=== PATIENT | female | born 1935 | race Caucasian/White ===

== ENCOUNTER 2018-06-06 13:45 | Outpatient (RCR) | payer MEDICARE, OTHER, SELFPAY ==
--- NOTE | 2018-05-09 10:58 | PT.OIE ---
Current Diagnoses Benign paroxysmal vertigo, left ear (05/09/18) Repeated falls (05/09/18) Provider Visit Care Team Role Provider Type Rimma Delgadillo Family Provider Non-Staff Primary Care Provider Specialty: Medical Address: [address] , [place], [address] Email: Sedrick Rubi MD Attending Provider Physician Specialty: Ear, Nose, Throat Address: [address] [place] [address], [id number] Email: Physical Therapy Initial Evaluation PT-OP-A Visit Information Start: 05/09/18 10:31 Freq: Status: Active Protocol: Document 05/09/18 09:40 DCW (Rec: 05/09/18 10:57 DCW [id number]) Out-Patient Physical Therapy Visit Information Visit Information Visit Type Initial Evaluation Visit Start Time 09:40 Visit Stop Time 10:30 Total Visit Minutes 50 Visit Number 1 Number of COMPUTER HARDWARE ENGINEER Visits 0 Evaluation Information Evaluation Date 05/09/18 PT-OP-B Current Condition Start: 05/09/18 10:31 Freq: Status: Active Protocol: Document 05/09/18 09:40 DCW (Rec: 05/09/18 10:57 DCW [id number]) Current Condition History of Current Condition Onset Date Two years Current Complaints Positional dizziness History of Current Condition Pt is an 83 year old female complaining of a two year history of motion-induced vertigo and imbalance. Pt reports episodes last seconds to minutes. Symptoms are provoked by getting out of bed on the left side and leaning back in a dentist or hair- dresser's chair. Pt notes that her symptoms began two years ago following a fall, where she hit her head on some rocks . Two months after the fall, and still suffering from dizziness, she went to the urgent care clinic, and had a CT scan performed, which was negative. Following this, she and her looked up her symptoms online, and decided she had BPPV, which was later confirmed by Dr Rubi. After Dr Rubi performed an Anderson maneuver, she was sent to a different PT clinic for vestibular rehabilitation, and reports it was a disaster, and it turned her off of any vestibular rehab over the following two years, until she had a few bad episodes recently at her dentist's office and hairdresser's, so she has decided to try treatment again. Pt denies recent hearing changes, tinnitus, diplopia, dysarthria , discoordination, or decreased mentation/ consciousness. Pt reports symptoms are waxing/waning in nature. Pt denies hx of hyperlipidemia, diabetes, seizure, migraines, CVA, anxiety/panic disorders, or excessive smoking or drinking. Pt reports she does have well -controlled HTN, and was recently diagnosed with an enlarged heart, but has no symptoms. Prior Treatments and Tests Prior Anderson maneuver, Head CT scan two years ago was negative Current Functional Impairments (Reported) Functional Limitations- ADL's Difficulty getting out of bed on left side Personal Factors Other Personal Factors That May Effect History of multiple falls Therapy/Recovery PT-OP-C Subjective Start: 05/09/18 10:31 Freq: Status: Active Protocol: Document 05/09/18 09:40 DCW (Rec: 05/09/18 10:57 DCW [id number]) Patient Questionnaires ABC- Activity Specific Balance Confidence Scale ABC Score 71.25% ABC Functional Impairment 20 to <40% Impaired (Score 61- 80) Dizziness Handicap Inventory DHI Score 26% DHI Functional Impairment 20 to 39% Impaired (Score 20- 39) OP-PT Pain Assessment Pain Assessment Grid Paper Pain Assessment Grid Completed No PT-OP-O Vestibular Start: 05/09/18 10:31 Freq: Status: Active Protocol: Document 05/09/18 09:40 DCW (Rec: 05/09/18 10:57 DCW [id number]) Vestibular Assessment Screening Tests Vestibular Artery Screen Negative Sharp-Jose Test Negative Auditory Tests Palacios Test Negative Rinne Test Negative Air Conduction Results Equal Visual Testing Smooth Pursuits Horizontal Negative Smooth Pursuits Vertical Negative Saccades Horizontal Negative Gaze Evoked Nystagmus With Fixation Negative Gaze Evoked Nystagmus Without Fixation Negative Heave Test Positive Bilateral Thrust Head Positive Bilateral Head Shake Negative Positional Testing Ronnie-Hallpike Positive Left Negative Right Upbeating < 60 Seconds Rolling Test Positive Left Negative Right Upbeating < 60 Seconds Comments Vestibular Comments Left [place]-Hallpike had 15 second latency period, followed by complaints of dizziness and up-beating, torsional nystagmus lasting 20 seconds. PT-OP-Q Treatments Start: 05/09/18 10:32 Freq: Status: Active Protocol: Document 05/09/18 09:40 DCW (Rec: 05/09/18 10:57 DCW [id number]) Canalithic Repositioning BPPV Treatment Anderson Affected Canal(s) Left posterior Comments Symptoms in positions 1 and 3, typically indicative of a successful treatment PT-OP-T Assessment and Plan Start: 05/09/18 10:31 Freq: Status: Active Protocol: Document 05/09/18 09:40 DCW (Rec: 05/09/18 10:57 DCW [id number]) Physical Therapy Assessment Rehab Potential Rehabilitation Potential Excellent Evaluation Complexity Number of Personal Factors/Comorbidities 1-2 Number of Body Systems Impaired 1-2 Clinical Presentation at Evaluation Unstable Impairments Impairments Balance Vestibular Goals Three Impairment Ronnie-Hallpike Short Term Goal (STG) Pt to have negative positional testing bilaterally STG Duration Two Impairment DHI Short Term Goal (STG) Pt to score less than 10% on DHI STG Duration One Impairment Exiting bed Short Term Goal (STG) Pt to be able to exit bed on left side with no symptoms STG Duration Assessment Summary Assessment During left Ronnie-Hallpike test, there was a 15 seconds latency, followed by pt complaint of vertigo and demonstrated up-beating, torsional nystagmus lasting approximately 20 seconds, consistent with diagnosis of left/right-sided posterior canal BPPV, canalithiasis-type . Pt was treated with a left- sided Anderson maneuver. Pt complained of symptoms in the first and third position, which is normally indicative of a successful treatment. Pt was educated on BPPV, expectations for treatment, possible recurrence, and post- Anderson restrictions. Pt to return in ~1 week for a follow-up appointment, and intermittently afterward as indicated for treatment of BPPV. Physical Therapy Plan Frequency and Duration Frequency of Treatment Intermittently Duration of Treatment 2 months Plan of Care Start Date 05/09/18 Plan of Care End Date 07/09/18 Therapeutic Interventions Therapeutic Interventions Balance Training Canalithic Repositioning Patient/Caregiver Education Self-Care/Home Management Vestibular Rehabilitation Next Visit Focus/Plan Next Note Type Treatment Note Next Visit Plan Further positional testing and CRM as indicated
--- NOTE | 2018-05-09 10:59 | PT.OPPOC ---
Current Diagnoses Benign paroxysmal vertigo, left ear (05/09/18) Repeated falls (05/09/18) Provider Visit Care Team Role Provider Type Rimma Delgadillo Family Provider Non-Staff Primary Care Provider Specialty: Medical Address: [address] , [place], [address] Email: Sedrick Rubi MD Attending Provider Physician Specialty: Ear, Nose, Throat Address: [address] [place] [address], [id number] Email: Plan Of Care PT-OP-T Assessment and Plan Start: 05/09/18 10:31 Freq: Status: Active Protocol: Document 05/09/18 09:40 DCW (Rec: 05/09/18 10:57 DCW [id number]) Physical Therapy Assessment Rehab Potential Rehabilitation Potential Excellent Evaluation Complexity Number of Personal Factors/Comorbidities 1-2 Number of Body Systems Impaired 1-2 Clinical Presentation at Evaluation Unstable Impairments Impairments Balance Vestibular Goals Three Impairment Ronnie-Hallpike Short Term Goal (STG) Pt to have negative positional testing bilaterally STG Duration Two Impairment DHI Short Term Goal (STG) Pt to score less than 10% on DHI STG Duration One Impairment Exiting bed Short Term Goal (STG) Pt to be able to exit bed on left side with no symptoms STG Duration Assessment Summary Assessment During left [place]-Hallpike test, there was a 15 seconds latency, followed by pt complaint of vertigo and demonstrated up-beating, torsional nystagmus lasting approximately 20 seconds, consistent with diagnosis of left/right-sided posterior canal BPPV, canalithiasis-type . Pt was treated with a left- sided Anderson maneuver. Pt complained of symptoms in the first and third position, which is normally indicative of a successful treatment. Pt was educated on BPPV, expectations for treatment, possible recurrence, and post- Anderson restrictions. Pt to return in ~1 week for a follow-up appointment, and intermittently afterward as indicated for treatment of BPPV. Physical Therapy Plan Frequency and Duration Frequency of Treatment Intermittently Duration of Treatment 2 months Plan of Care Start Date 05/09/18 Plan of Care End Date 07/09/18 Therapeutic Interventions Therapeutic Interventions Balance Training Canalithic Repositioning Patient/Caregiver Education Self-Care/Home Management Vestibular Rehabilitation Next Visit Focus/Plan Next Note Type Treatment Note Next Visit Plan Further positional testing and CRM as indicated Plan of Care Dates Plan of Care Start Date 05/09/18 Plan of Care End Date 07/09/18 Please Sign and Return: I have reviewed this Plan of Care and certify that the skilled therapy services above are required to meet the patient?s needs. Physician Signature Date Printed Name and Credentials Clinical Instructor Signature Printed Name and Credentials
--- NOTE | 2018-06-06 14:18 | PT.OTN ---
Current Diagnoses Benign paroxysmal vertigo, left ear (06/06/18) Physical Therapy Treatment Note PT-OP-A Visit Information Start: 05/09/18 10:31 Freq: Status: Active Protocol: Document 06/06/18 13:45 DCW (Rec: 06/06/18 14:18 DCW [id number]) Out-Patient Physical Therapy Visit Information Visit Information Visit Type Treatment Note Visit Start Time 13:45 Visit Stop Time 14:05 Total Visit Minutes 20 Visit Number 2 Number of FINAL ARMATURE TESTER Visits 0 Evaluation Information Evaluation Date 05/09/18 PT-OP-B Current Condition Start: 05/09/18 10:31 Freq: Status: Active Protocol: Document 05/09/18 09:40 DCW (Rec: 05/09/18 10:57 DCW [id number]) Current Condition History of Current Condition Onset Date Two years Current Complaints Positional dizziness History of Current Condition Pt is an 83 year old female complaining of a two year history of motion-induced vertigo and imbalance. Pt reports episodes last seconds to minutes. Symptoms are provoked by getting out of bed on the left side and leaning back in a dentist or hair- dresser's chair. Pt notes that her symptoms began two years ago following a fall, where she hit her head on some rocks . Two months after the fall, and still suffering from dizziness, she went to the urgent care clinic, and had a CT scan performed, which was negative. Following this, she and her looked up her symptoms online, and decided she had BPPV, which was later confirmed by Dr Rubi. After Dr Rubi performed an Anderson maneuver, she was sent to a different PT clinic for vestibular rehabilitation, and reports it was a disaster, and it turned her off of any vestibular rehab over the following two years, until she had a few bad episodes recently at her dentist's office and [employer], so she has decided to try treatment again. Pt denies recent hearing changes, tinnitus, diplopia, dysarthria , discoordination, or decreased mentation/ consciousness. Pt reports symptoms are waxing/waning in nature. Pt denies hx of hyperlipidemia, diabetes, seizure, migraines, CVA, anxiety/panic disorders, or excessive smoking or drinking. Pt reports she does have well -controlled HTN, and was recently diagnosed with an enlarged heart, but has no symptoms. Prior Treatments and Tests Prior Anderson maneuver, Head CT scan two years ago was negative Current Functional Impairments (Reported) Functional Limitations- ADL's Difficulty getting out of bed on left side Personal Factors Other Personal Factors That May Effect History of multiple falls Therapy/Recovery PT-OP-C Subjective Start: 05/09/18 10:31 Freq: Status: Active Protocol: Document 06/06/18 13:45 DCW (Rec: 06/06/18 14:18 DCW [id number]) OP-PT Subjective Patient Comments Patient Comments Pt reports that she believes she is doing better, but she also hasn't had much occasion to really put her head back very far. PT-OP-O Vestibular Start: 05/09/18 10:31 Freq: Status: Active Protocol: Document 05/09/18 09:40 DCW (Rec: 05/09/18 10:57 DCW [id number]) Vestibular Assessment Screening Tests Vestibular Artery Screen Negative Sharp-Jose Test Negative Auditory Tests Palacios Test Negative Rinne Test Negative Air Conduction Results Equal Visual Testing Smooth Pursuits Horizontal Negative Smooth Pursuits Vertical Negative Saccades Horizontal Negative Gaze Evoked Nystagmus With Fixation Negative Gaze Evoked Nystagmus Without Fixation Negative Heave Test Positive Bilateral Thrust Head Positive Bilateral Head Shake Negative Positional Testing Ronnie-Hallpike Positive Left Negative Right Upbeating < 60 Seconds Rolling Test Positive Left Negative Right Upbeating < 60 Seconds Comments Vestibular Comments Left [place]-Hallpike had 15 second latency period, followed by complaints of dizziness and up-beating, torsional nystagmus lasting 20 seconds. PT-OP-Q Treatments Start: 05/09/18 10:32 Freq: Status: Active Protocol: Document 06/06/18 13:45 DCW (Rec: 06/06/18 14:18 DCW [id number]) Canalithic Repositioning BPPV Treatment Anderson Affected Canal(s) Left posterior Comments Symptoms in positions 1 and 3, typically indicative of a successful treatment PT-OP-T Assessment and Plan Start: 05/09/18 10:31 Freq: Status: Active Protocol: Document 06/06/18 13:45 DCW (Rec: 06/06/18 14:18 DCW [id number]) Physical Therapy Assessment Impairments Impairments Balance Vestibular Goals Three Impairment Ronnie-Hallpike Short Term Goal (STG) Pt to have negative positional testing bilaterally STG Duration Two Impairment DHI Short Term Goal (STG) Pt to score less than 10% on DHI STG Duration One Impairment Exiting bed Short Term Goal (STG) Pt to be able to exit bed on left side with no symptoms STG Duration Assessment Summary Assessment Pt complained of vertigo lasting 5 seconds during left Ronnie-Hallpike following a 30 second latency, however did not have any visible nystagmus . A left-sided Anderson maneuver was performed, and further testing was negative. Discussed plan with patient, and she was agreeable to not schedule any further appointments at this time, and call within the next month if she requires any more CRM. Physical Therapy Plan Frequency and Duration Frequency of Treatment Intermittently Duration of Treatment 2 months Plan of Care Start Date 05/09/18 Plan of Care End Date 07/09/18 Therapeutic Interventions Therapeutic Interventions Balance Training Canalithic Repositioning Patient/Caregiver Education Self-Care/Home Management Vestibular Rehabilitation Next Visit Focus/Plan Next Note Type Treatment Note Next Visit Plan Further positional testing and CRM as indicated
--- NOTE | 2018-07-30 09:53 | PT.OPDS ---
Current Diagnoses Benign paroxysmal vertigo, left ear (06/06/18) Provider Visit Care Team Role Provider Type Rimma Delgadillo Family Provider Non-Staff Primary Care Provider Specialty: Medical Address: [address] , [place], [address] Email: Sedrick Rubi MD Attending Provider Physician Specialty: Ear, Nose, Throat Address: [address] [place] [address], [id number] Email: Visit Number Visit Number 2 Discharge Summary PT-OP-B Current Condition Start: 05/09/18 10:31 Freq: Status: Active Protocol: Document 05/09/18 09:40 DCW (Rec: 05/09/18 10:57 DCW [id number]) Current Condition History of Current Condition Onset Date Two years Current Complaints Positional dizziness History of Current Condition Pt is an 83 year old female complaining of a two year history of motion-induced vertigo and imbalance. Pt reports episodes last seconds to minutes. Symptoms are provoked by getting out of bed on the left side and leaning back in a dentist or hair- dresser's chair. Pt notes that her symptoms began two years ago following a fall, where she hit her head on some rocks . Two months after the fall, and still suffering from dizziness, she went to the urgent care clinic, and had a CT scan performed, which was negative. Following this, she and her looked up her symptoms online, and decided she had BPPV, which was later confirmed by Dr Rubi. After Dr Rubi performed an Anderson maneuver, she was sent to a different PT clinic for vestibular rehabilitation, and reports it was a disaster, and it turned her off of any vestibular rehab over the following two years, until she had a few bad episodes recently at her dentist's office and hairdresser's, so she has decided to try treatment again. Pt denies recent hearing changes, tinnitus, diplopia, dysarthria , discoordination, or decreased mentation/ consciousness. Pt reports symptoms are waxing/waning in nature. Pt denies hx of hyperlipidemia, diabetes, seizure, migraines, CVA, anxiety/panic disorders, or excessive smoking or drinking. Pt reports she does have well -controlled HTN, and was recently diagnosed with an enlarged heart, but has no symptoms. Prior Treatments and Tests Prior Anderson maneuver, Head CT scan two years ago was negative Current Functional Impairments (Reported) Functional Limitations- ADL's Difficulty getting out of bed on left side Personal Factors Other Personal Factors That May Effect History of multiple falls Therapy/Recovery PT-OP-O Vestibular Start: 05/09/18 10:31 Freq: Status: Active Protocol: Document 05/09/18 09:40 DCW (Rec: 05/09/18 10:57 DC [id number]) Vestibular Assessment Screening Tests Vestibular Artery Screen Negative Sharp-Jose Test Negative Auditory Tests [place] Test Negative Rinne Test Negative Air Conduction Results Equal Visual Testing Smooth Pursuits Horizontal Negative Smooth Pursuits Vertical Negative Saccades Horizontal Negative Gaze Evoked Nystagmus With Fixation Negative Gaze Evoked Nystagmus Without Fixation Negative Heave Test Positive Bilateral Thrust Head Positive Bilateral Head Shake Negative Positional Testing [place]-Hallpike Positive Left Negative Right Upbeating < 60 Seconds Rolling Test Positive Left Negative Right Upbeating < 60 Seconds Comments Vestibular Comments Left [place]-Hallpike had 15 second latency period, followed by complaints of dizziness and up-beating, torsional nystagmus lasting 20 seconds. PT-OP-T Assessment and Plan Start: 05/09/18 10:31 Freq: Status: Active Protocol: Document 07/30/18 09:50 DCW (Rec: 07/30/18 09:53 DC [id number]) Physical Therapy Assessment Goals Three Impairment [place]-Hallpike Short Term Goal (STG) Pt to have negative positional testing bilaterally STG Duration Two Impairment DHI Short Term Goal (STG) Pt to score less than 10% on DHI STG Duration One Impairment Exiting bed Short Term Goal (STG) Pt to be able to exit bed on left side with no symptoms STG Duration Assessment Summary Assessment Pt was last seen on 06/06/18, and at that time was instructed to call for a return appointment within one month if her symptoms continued. Pt has not called to schedule any appointments, and will be discharged at this time. Physical Therapy Plan Discharge Physical Therapy Discharge Reasons No Longer Attending PT
== END 2018-07-30 12:00 | disposition home or self-care (01) ==
LOC: PHYS 13:45
PROVIDERS: Family Provider Family Medicine; PCP Family Medicine; Visit Provider Otolaryngology
DX: H81.12 Benign paroxysmal vertigo, left ear (principal)
CPT/HCPCS: 95992; 97161

== ENCOUNTER 2018-10-23 13:53 | Outpatient (RCR) | payer MEDICARE, OTHER, SELFPAY ==
--- NOTE | 2018-10-23 15:47 | PT.OIE ---
Current Diagnoses Benign paroxysmal vertigo, left ear (10/23/18) Provider Visit Care Team Role Provider Type Rimma Delgadillo Primary Care Provider Non-Staff Specialty: Medical Address: [address] , [place], [address] Email: Sedrick Rubi MD Attending Provider Physician Specialty: Ear, Nose, Throat Address: [address] [place] [address], [id number] Email: Physical Therapy Initial Evaluation PT-OP-A Visit Information Start: 10/23/18 14:28 Freq: Status: Active Protocol: Document 10/23/18 14:30 DCW (Rec: 10/23/18 15:47 DCW [id number]) Out-Patient Physical Therapy Visit Information Visit Information Visit Type Initial Evaluation Visit Start Time 14:30 Visit Stop Time 15:05 Total Visit Minutes 35 Visit Number 1 Number of STAVE INSPECTOR Visits 0 Evaluation Information Evaluation Date 10/23/18 PT-OP-B Current Condition Start: 10/23/18 14:28 Freq: Status: Active Protocol: Document 10/23/18 14:30 DCW (Rec: 10/23/18 15:47 DCW [id number]) Current Condition History of Current Condition Onset Date One week Current Complaints Positional dizziness History of Current Condition Pt is an 83 year old female complaining of a one week history of motion-induced vertigo. 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 Pt reports she was at a urology appointment, had to lay back in a chair for some imaging, and she suddenly became very symptomatic with a sensation of feeling like the room was spinning. This occurred again when she then sat up following the procedure, and she almost fell trying to get to her coat, but was able to grab onto the wall. Pt denies recent hearing changes, tinnitus, diplopia, dysarthria , discoordination, or decreased mentation/ consciousness. Pt reports symptoms are waxing and waning in nature. Pt denies hx of hyperlipidemia, diabetes, seizure, migraines, CVA, anxiety/panic disorders, or excessive smoking or drinking. Pt reports she does have well -controlled HTN, and was recently diagnosed with an enlarged heart, but has no symptoms. 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 Anderson maneuver Head CT scan two years ago was negative Treatment Goals Patient/Caregiver Goals Eliminate symptoms with positional changes, and decrease fear/apprehension that symptoms may suddenly return Current Functional Impairments (Reported) Functional Limitations- ADL's Difficulty getting out of bed on left side Personal Factors Other Personal Factors That May Effect History of multiple falls Therapy/Recovery PT-OP-C Subjective Start: 10/23/18 14:28 Freq: Status: Active Protocol: Document 10/23/18 14:30 DCW (Rec: 10/23/18 15:47 DCW [id number]) OP-PT Subjective Patient Comments Patient Comments I think it's pretty much the same as before. Patient Questionnaires ABC- Activity Specific Balance Confidence Scale ABC Score 28.13% ABC Functional Impairment 60 to <80% Impaired (Score 21- 40) Dizziness Handicap Inventory DHI Score 33% DHI Functional Impairment 20 to 39% Impaired (Score 20- 39) OP-PT Pain Assessment Pain Assessment Grid Paper Pain Assessment Grid Completed No PT-OP-O Vestibular Start: 10/23/18 14:28 Freq: Status: Active Protocol: Document 10/23/18 14:30 DCW (Rec: 10/23/18 15:47 DCW [id number]) Vestibular Assessment Screening Tests Vestibular Artery Screen Negative Sharp-Jose Test Negative Visual Testing Smooth Pursuits Horizontal Negative Smooth Pursuits Vertical Negative Saccades Horizontal Negative Gaze Evoked Nystagmus With Fixation Negative Gaze Evoked Nystagmus Without Fixation Negative Heave Test Positive Bilateral Thrust Head Positive Bilateral Positional Testing [place]-Hallpike Negative Left Negative Right Rolling Test Negative Left Negative Right Comments Vestibular Comments Thrust/Heave tests mildly positive bilaterally PT-OP-Q Treatments Start: 10/23/18 14:28 Freq: Status: Active Protocol: Document 10/23/18 14:30 DCW (Rec: 10/23/18 15:47 DCW [id number]) Canalithic Repositioning BPPV Treatment Anderson Affected Canal(s) Left posterior Reps x1 PT-OP-T Assessment and Plan Start: 10/23/18 14:28 Freq: Status: Active Protocol: Document 10/23/18 14:30 DCW (Rec: 10/23/18 15:47 DCW [id number]) Physical Therapy Assessment Rehab Potential Rehabilitation Potential Good Evaluation Complexity Number of Personal Factors/Comorbidities 1-2 Number of Body Systems Impaired 1-2 Clinical Presentation at Evaluation Unstable Impairments Impairments Balance Vestibular Goals Three Impairment Ronnie-Hallpike Short Term Goal (STG) Pt to report no unusual feeling during positional testing bilaterally STG Duration 11/22/18 Two Impairment Subjective Questionnaires Short Term Goal (STG) Pt to score less than 10% on DHI STG Duration 11/22/18 Bagging Machine Operator Goal (LTG) Pt to score at least 50% on ABC scale LTG Duration 12/23/18 One Impairment Pt unable to tolerate going to dentist due to positioning causing dizziness Short Term Goal (STG) Pt to go to dentist with no complaints of vertigo during her appointment STG Duration 11/22/18 Assessment Summary Assessment Pt presents with an entirely negative vestibular examination, with the exception of a bilaterally positive thrust and heave test , which is 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 Due to pt's previous experience with left BPPV, with positive testing last time she was in and a 50% chance of recurrence, a left- sided Anderson maneuver was performed. No other peripheral or central signs/symptoms noted at this time. Pt is, however, obviously affected by the possibility of an ongoing issues, as her ABC scale score last time was a 71.25% confidence level, and it has substantially dropped to a 28 .13%. As her testing was negative at this time, pt was instructed to schedule a follow-up visit if her symptoms return or worsen for further testing and CRM as needed. Pt may also benefit from balance testing and training as indicated. Physical Therapy Plan Frequency and Duration Frequency of Treatment Intermittently Duration of Treatment 2 months Plan of Care Start Date 10/23/18 Plan of Care End Date 12/23/18 Therapeutic Interventions Therapeutic Interventions Balance Training Canalithic Repositioning Patient/Caregiver Education Self-Care/Home Management Vestibular Rehabilitation Next Visit Focus/Plan Next Note Type Treatment Note Next Visit Plan Further positional testing and CRM as indicated
--- NOTE | 2018-10-23 15:49 | PT.OPPOC ---
Current Diagnoses Benign paroxysmal vertigo, left ear (10/23/18) Provider Visit Care Team Role Provider Type Rimma Delgadillo Primary Care Provider Non-Staff Specialty: Medical Address: [facility] [place], [address] Email: Sedrick Rubi MD Attending Provider Physician Specialty: Ear, Nose, Throat Address: [address] [place] [address], [id number] Email: Plan Of Care PT-OP-T Assessment and Plan Start: 10/23/18 14:28 Freq: Status: Active Protocol: Document 10/23/18 14:30 DCW (Rec: 10/23/18 15:47 DCW [id number]) Physical Therapy Assessment Rehab Potential Rehabilitation Potential Good Evaluation Complexity Number of Personal Factors/Comorbidities 1-2 Number of Body Systems Impaired 1-2 Clinical Presentation at Evaluation Unstable Impairments Impairments Balance Vestibular Goals Three Impairment Ronnie-Hallpike Short Term Goal (STG) Pt to report no unusual feeling during positional testing bilaterally STG Duration 11/22/18 Two Impairment Subjective Questionnaires Short Term Goal (STG) Pt to score less than 10% on DHI STG Duration 11/22/18 Skip Hoist Operator Goal (LTG) Pt to score at least 50% on ABC scale LTG Duration 12/23/18 One Impairment Pt unable to tolerate going to dentist due to positioning causing dizziness Short Term Goal (STG) Pt to go to dentist with no complaints of vertigo during her appointment STG Duration 11/22/18 Assessment Summary Assessment Pt presents with an entirely negative vestibular examination, with the exception of a bilaterally positive thrust and heave test , which is 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 Due to pt's previous experience with left BPPV, with positive testing last time she was in and a 50% chance of recurrence, a left- sided Anderson maneuver was performed. No other peripheral or central signs/symptoms noted at this time. Pt is, however, obviously affected by the possibility of an ongoing issues, as her ABC scale score last time was a 71.25% confidence level, and it has substantially dropped to a 28. 13%. As her testing was negative at this time, pt was instructed to schedule a follow-up visit if her symptoms return or worsen for further testing and CRM as needed. Pt may also benefit from balance testing and training as indicated. Physical Therapy Plan Frequency and Duration Frequency of Treatment Intermittently Duration of Treatment 2 months Plan of Care Start Date 10/23/18 Plan of Care End Date 12/23/18 Therapeutic Interventions Therapeutic Interventions Balance Training Canalithic Repositioning Patient/Caregiver Education Self-Care/Home Management Vestibular Rehabilitation Next Visit Focus/Plan Next Note Type Treatment Note Next Visit Plan Further positional testing and CRM as indicated Plan of Care Dates Plan of Care Start Date 10/23/18 Plan of Care End Date 12/23/18 Please Sign and Return: I have reviewed this Plan of Care and certify that the skilled therapy services above are required to meet the patient?s needs. Physician Signature Date Printed Name and Credentials Clinical Instructor Signature Printed Name and Credentials
--- NOTE | 2018-11-30 10:45 | PT.OPDS ---
Current Diagnoses Benign paroxysmal vertigo, left ear (10/23/18) Provider Visit Care Team Role Provider Type Rimma Delgadillo Primary Care Provider Non-Staff Specialty: Medical Address: [address] , [place], [address] Email: Sedrick Rubi MD Attending Provider Physician Specialty: Ear, Nose, Throat Address: [address] [place] [address], [id number] Email: Visit Number Visit Number 1 Discharge Summary PT-OP-B Current Condition Start: 10/23/18 14:28 Freq: Status: Active Protocol: Document 10/23/18 14:30 DCW (Rec: 10/23/18 15:47 DCW [id number]) Current Condition History of Current Condition Onset Date One week Current Complaints Positional dizziness History of Current Condition Pt is an 83 year old female complaining of a one week history of motion-induced vertigo. 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 Pt reports she was at a urology appointment, had to lay back in a chair for some imaging, and she suddenly became very symptomatic with a sensation of feeling like the room was spinning. This occurred again when she then sat up following the procedure, and she almost fell trying to get to her coat, but was able to grab onto the wall. Pt denies recent hearing changes, tinnitus, diplopia, dysarthria , discoordination, or decreased mentation/ consciousness. Pt reports symptoms are waxing and waning in nature. Pt denies hx of hyperlipidemia, diabetes, seizure, migraines, CVA, anxiety/panic disorders, or excessive smoking or drinking. Pt reports she does have well -controlled HTN, and was recently diagnosed with an enlarged heart, but has no symptoms. 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 Anderson maneuver Head CT scan two years ago was negative Treatment Goals Patient/Caregiver Goals Eliminate symptoms with positional changes, and decrease fear/apprehension that symptoms may suddenly return Current Functional Impairments (Reported) Functional Limitations- ADL's Difficulty getting out of bed on left side Personal Factors Other Personal Factors That May Effect History of multiple falls Therapy/Recovery PT-OP-C Subjective Start: 10/23/18 14:28 Freq: Status: Active Protocol: Document 10/23/18 14:30 DCW (Rec: 10/23/18 15:47 DC [id number]) OP-PT Subjective Patient Comments Patient Comments I think it's pretty much the same as before. Patient Questionnaires ABC- Activity Specific Balance Confidence Scale ABC Score 28.13% ABC Functional Impairment 60 to <80% Impaired (Score 21- 40) Dizziness Handicap Inventory DHI Score 33% DHI Functional Impairment 20 to 39% Impaired (Score 20- 39) OP-PT Pain Assessment Pain Assessment Grid Paper Pain Assessment Grid Completed No PT-OP-O Vestibular Start: 10/23/18 14:28 Freq: Status: Active Protocol: Document 10/23/18 14:30 DCW (Rec: 10/23/18 15:47 [facility] [id number]) Vestibular Assessment Screening Tests Vestibular Artery Screen Negative Sharp-Jose Test Negative Visual Testing Smooth Pursuits Horizontal Negative Smooth Pursuits Vertical Negative Saccades Horizontal Negative Gaze Evoked Nystagmus With Fixation Negative Gaze Evoked Nystagmus Without Fixation Negative Heave Test Positive Bilateral Thrust Head Positive Bilateral Positional Testing [place]-Hallpike Negative Left Negative Right Rolling Test Negative Left Negative Right Comments Vestibular Comments Thrust/Heave tests mildly positive bilaterally PT-OP-T Assessment and Plan Start: 10/23/18 14:28 Freq: Status: Active Protocol: Document 11/30/18 10:44 DCW (Rec: 11/30/18 10:45 DCW [id number]) Physical Therapy Assessment Assessment Summary Assessment Therapist left message on pt's voicemail regarding pt's current status. Pt left a voicemail in response, and reports she has not been having any symptoms currently. Pt will be discharge from skilled therapy at this time, and will require a new referral in order to return.
== END 2018-12-04 11:34 | disposition home or self-care (01) ==
LOC: PHYS 13:53
PROVIDERS: PCP Family Medicine; Visit Provider Otolaryngology
DX: H81.12 Benign paroxysmal vertigo, left ear (principal)
CPT/HCPCS: 95992; 97161

== ENCOUNTER → 2022-02-16 08:19 | Outpatient (CLI) | payer MEDICARE, OTHER, SELFPAY ==
[2022-02-16 09:35] LABS: Add Manual Diff / Slide Review NO; Basophils Absolute Auto 100 /uL (0-100); Basophils Percent Auto 0.7 % (0-2); Eosinophils Absolute Auto 200 /uL (0-450); Hematocrit 34.8 % (36-46); Hemoglobin 11.9 g/dL (12.0-16.0); Lymphocytes Absolute Auto 2600 /uL (1100-4500); Mean Corpuscular HGB Conc 34.2 % (30-36); Mean Corpuscular Hemoglobin 27.8 PG (26-34); Mean Corpuscular Volume 81.5 fL (80-100); Monocytes Absolute Auto 600 /uL (0-900); Monocytes Percent Auto 7.4 % (3-14); Neutrophils Absolute Auto 4600 /uL (1500-7000); Neutrophils Percent Auto 56.9 % (50-75); Platelet Count 247 X10^3/uL (150-400); Red Blood Cell Count 4.28 X10^6/uL (4.0-5.2); Red Cell Distribution Width 15.1 % (11.6-14.8)
[2022-02-16 09:49] LABS: Alanine Aminotransferase 33 IU/L (<35); Albumin 4.4 g/dL (3.5-5.0); Albumin Globulin Ratio 1.3 (1.0-2.8); Alkaline Phosphatase 89 U/L (38-126); Aspartate Aminotransferase 35 IU/L (14-36); BUN Creatinine Ratio 15.8 (6-22); Bilirubin Total 0.4 mg/dL (0.2-1.3); Blood Urea Nitrogen 12 mg/dL (7-17); Calcium 9.3 mg/dL (8.4-10.2); Carbon Dioxide 30 mmol/L (22-32); Chloride 103 mmol/L (98-107); Estimated Glomerular Filt Rate > 60 mL/min (>60); Globulin 3.4 g/dL (1.7-4.1); Glucose 90 mg/dL (80-110); HEMOLYSIS < 15 (0-50); Potassium 3.8 mmol/L (3.4-5.1); Sodium 141 mmol/L (137-145); Total Protein 7.8 g/dL (6.3-8.2); Uric Acid 5.9 mg/dL (2.5-6.2)
[2022-02-16 09:53] LABS: High Sensitivity CRP - Cardiac 6.1 mg/L (1.0-3.0)
[2022-02-16 09:55] LABS: Erythrocyte Sedimentation Rate 38 MM/HR (0-20)
[2022-02-16 10:19] LABS: Thyroid Stimulating Hormone 3.52 uIU/mL (0.47-4.68)
[2022-02-17 16:03] LABS: SS A Ro Sjogrens Antibody < 0.2 AI (0.0-0.9); SS B La Sjogrens Antibody < 0.2 AI (0.0-0.9)
[2022-02-18 14:14] LABS: ANA Screen, IFA Negative (.)
== END ==
PROVIDERS: PCP Family Medicine; Referring Provider Ophthalmology; Visit Provider Ophthalmology
DX: M35.00 Sjogren syndrome, unspecified (principal); H16.042 Marginal corneal ulcer, left eye
CPT/HCPCS: 36415; 80053; 84443; 84550; 85025; 85651; 86038; 86140; 86235